=== PATIENT | male | born 1945 | race Hispanic/Latino ===

== ENCOUNTER 2018-06-26 16:09 | Emergency (ER) | payer MEDICARE, BC ==
[2018-06-26 16:50] LABS: #Basophils 0.1 thou/uL (0.0-0.2); #Eosinphils 0.2 thou/uL (0.0-0.7); #Lymphocytes 3.8 thou/uL (1.20-3.40); #Neutrophils 9.9 thou/uL (1.40-6.50); %Basophils 0.8 % (0.0-1.0); %Eosinophils 1.6 % (0.0-10.0); %Lymphocytes 25.1 % (21.0-51.0); %Monocytes 6.4 % (0.0-10.0); %Neutrophils 66.1 % (42.0-75.0); Mean Corpuscular HGB CONC 34.7 g/dL (32.0-36.0); Mean Corpuscular Hemoglobin 29.7 pg (27.0-31.0); Mean Corpuscular Volume 85.6 fL (78.0-98.0); Mean Platelet Volume 8.8 fL (7.4-10.4); Platelet Count 339 thou/uL (130-400); RBC Distribution Width 11.1 % (11.5-14.5); Red Blood Cell (RBC) Count 5.39 mill/uL (4.70-6.10)
[2018-06-26 17:01] LABS: Bilirubin Negative (Negative); Blood, Urine Negative (Negative); Clarity Clear (Clear); Glucose, Urine (Dipstick) Negative (Negative); Leukocyte Negative (Negative); Nitrite Negative (Negative); Protein, Urine (Dipstick) Negative (Neg-Trace); Specific Gravity, Urine 1.015 (1.005-1.030); Urobilinogen 0.2 mg/dL (0.2-1.0)
[2018-06-26 17:08] LABS: ALT (SGPT) 30 U/L (8-55); AST (SGOT) 25 U/L (5-34); Albumin 4.5 g/dL (3.4-4.8); Alkaline Phosphatase 102 U/L (40-150); Anion Gap 14 mmol/L (10-20); BUN (Urea Nitrogen) 18 mg/dL (8.4-25.7); Bilirubin, Total 0.5 mg/dL (0.2-1.2); Calc. Creatinine Clearance 0 mL/min (70-130); Calcium 10.2 mg/dL (7.8-10.44); Carbon Dioxide 28 mmol/L (23-31); Chloride 100 mmol/L (98-107); Estimated GFR-MDRD 58; Globulin 4.2 g/dL (2.4-3.5); Glucose 155 mg/dL (83-110); Lipase 29 U/L (8-78); Potassium 3.3 mmol/L (3.5-5.1); Protein, Total 8.7 g/dL (5.8-8.1); Sodium 139 mmol/L (136-145)
--- NOTE | 2018-06-26 17:25 | CT ---
CT ABDOMEN AND PELVIS WITHOUT CONTRAST STONE PROTOCOL: HISTORY: Abdominal pain. COMPARISON: None. FINDINGS: Mild atelectasis in the lung bases. No pericardial effusion. Cholelithiasis is present. No nephroureterolithiasis or hydroureteronephrosis. No secondary evidenc e of a recently passed stone. Marked dilatation of the urinary bladder with a diverticulum at the bl adder dome. There is some low grade inflammatory stranding noted at the bladder dome, anteriorly, on axial image 70 and coronal image 33. The prostate is markedly enlarged. Moderate diverticular disease of the sigmoid colon without active current inflammation. The appendix is visualized and is normal. No retroperitoneal adenopathy. Noncontrast evaluation of the liver, s pleen, pancreas, and adrenal glands are unremarkable. No dilated loops of large or small bowel. Adv anced degenerative changes of the lumbar spine. IMPRESSION: 1. No nephroureterolithiasis or hydroureteronephrosis. No secondary evidence of a recently passed s tone. 2. Marked enlargement and dilatation of the urinary bladder with a dome diverticulum and some low gr ayla inflammatory stranding, anteriorly. Reed catheterization is recommended, as the patient may be suffering from bladder outlet obstruction. 3. Moderate diverticular disease of the sigmoid colon without active current inflammation. 4. Cholelithiasis without cholecystitis. 5. Right adrenal adenoma. POS: [facility]
== END 2018-06-26 17:39 | disposition home or self-care (01) ==
LOC: SCSER 16:09
DX: R33.9 Retention of urine, unspecified (principal); I25.10 Atherosclerotic heart disease of native coronary artery without angina pectoris; I10 Essential (primary) hypertension; E78.00 Pure hypercholesterolemia, unspecified; Z79.899 Other long term (current) drug therapy; Z79.82 Long term (current) use of aspirin
CPT/HCPCS: 36415; 51702; 74176; 80053; 81003; 83690; 85025